=== PATIENT | female | born 1945 | race Asian ===

== ENCOUNTER 2016-10-18 10:30 | Outpatient (RCR) | payer MEDICARE, MEDICAID ==
[~2016-10-18 10:30] MED LIST: AMLODIPINE-BEN1 EAC4 PO; BENAZEPRIL HCL20 MG PO; CALCIUM PO; DEXILANT60 MG PO; GABAPENTIN400 MG PO; NASONEX17 GM NS; SIMVASTATIN40 MG PO; TENORMIN50 MG PO; VITAMIN D PO
== END 2016-10-20 | disposition home or self-care (01) ==
LOC: PTY 10:30
DX: M25.512 Pain in left shoulder (principal)
CPT/HCPCS: 97110; 97162; G0283; G8984; G8985

== ENCOUNTER 2016-11-17 08:14 | Outpatient (RCR) | payer MEDICARE, MEDICAID | END 2016-11-19 | disposition home or self-care (01) | LOC: PTY 08:14 | DX: M25.512 Pain in left shoulder (principal); M79.646 Pain in unspecified finger(s) | CPT/HCPCS: 97035; 97110; G0283 ==

== ENCOUNTER → 2016-12-20 | Outpatient (RCR) | payer MEDICARE, MEDICAID | END | disposition home or self-care (01) | LOC: PTY 11-22 08:32 | DX: M25.512 Pain in left shoulder (principal); M79.646 Pain in unspecified finger(s); I10 Essential (primary) hypertension | CPT/HCPCS: 97035; 97110; G0283 ==

== ENCOUNTER 2016-12-22 08:30 | Outpatient (RCR) | payer MEDICARE, MEDICAID | END 2017-01-19 | disposition home or self-care (01) | LOC: PTY 08:30 | DX: M25.512 Pain in left shoulder (principal); M79.646 Pain in unspecified finger(s) | CPT/HCPCS: 97035; 97110; G0283; G8984; G8985; G8986 ==